=== PATIENT | female | born 1950 | race Caucasian/White ===

== ENCOUNTER → 2016-03-21 | Outpatient (CLI) | payer OTHER ==
[2016-03-21 12:59] LABS: Basophils % (A) 1 %; CHCM 34.4; Eosinophils # (A) 0.2 k/uL (0-0.7); Eosinophils % (A) 4 %; HCT 40.2 % (34.0-46.0); HDW 2.67; HGB 13.4 gm/dL (11.4-16.0); Luc # (Auto) 0.05; Luc % (Auto) 1; Lymphocytes # (A) 1.6 k/uL (1.0-4.8); Lymphocytes % (A) 28 %; MCH 30.3 pg (25.0-35.0); MCHC 33.4 g/dL (31.0-37.0); MCV 90.8 fL (80.0-100.0); Mean Platelet Volume 8.2; Monocytes # (A) 0.3 k/uL (0-1.0); Monocytes % (A) 5 %; Neutrophils # (A) 3.4 k/uL (1.3-7.7); Neutrophils % (A) 62 %; RBC 4.43 m/uL (3.80-5.40); RDW 12.5 % (11.5-15.5); WBC 5.5 k/uL (3.8-10.6)
[2016-03-21 13:16] LABS: ALT 34 U/L (9-52); AST 24 U/L (14-36); Alkaline Phosphatase 121 U/L (38-126); Anion Gap 10 mmol/L; Blood Urea Nitrogen 19 mg/dL (7-17); C Reactive Protein 7.5 mg/L (<10.0); Calcium 9.8 mg/dL (8.4-10.2); Carbon Dioxide 27 mmol/L (22-30); Chloride 108 mmol/L (98-107); Cholesterol 306 mg/dL (<200); Creatine Kinase 87 U/L (30-135); Glucose 92 mg/dL (74-99); HDL Cholesterol 46 mg/dL (40-60); Non-African American GFR(MDRD) >60 (>60 ml/min/1.73 sqM); Potassium 4.3 mmol/L (3.5-5.1); Sodium 145 mmol/L (137-145); Total Bilirubin 1.2 mg/dL (0.2-1.3); Total Protein 7.5 g/dL (6.3-8.2); Triglycerides 225 mg/dL (<150)
[2016-03-21 14:00] LABS: Vitamin B12 540 pg/mL (239-931)
[2016-03-21 14:01] LABS: Erythrocyte Sedimentation Rate 10 mm/hr (0-20)
[2016-03-21 14:55] LABS: Hemoglobin A1C 4.9 % (4.2-6.1)
[2016-03-21 22:48] LABS: ANA w/Reflex to Titer POSITIVE (NEGATIVE)
== END | disposition home or self-care (01) ==
LOC: LABWHC1 12:26
PROVIDERS: ATTEND Internal Medicine
DX: D64.9 Anemia, unspecified (principal); E78.5 Hyperlipidemia, unspecified; E55.9 Vitamin D deficiency, unspecified; E53.8 Deficiency of other specified B group vitamins; R25.9 Unspecified abnormal involuntary movements
CPT/HCPCS: 36415; 80053; 80061; 82306; 82550; 82607; 83036; 85025; 85652; 86038; 86039; 86140; 86225

== ENCOUNTER → 2017-08-12 | Outpatient (CLI) | payer MEDICARE ==
[2017-08-12 14:51] LABS: Basophils % (A) 0 %; Eosinophils # (A) 0.2 k/uL (0-0.7); Eosinophils % (A) 3 %; HCT 40.6 % (34.0-46.0); HGB 13.6 gm/dL (11.4-16.0); Lymphocytes # (A) 1.6 k/uL (1.0-4.8); Lymphocytes % (A) 25 %; MCH 29.7 pg (25.0-35.0); MCHC 33.6 g/dL (31.0-37.0); MCV 88.3 fL (80.0-100.0); Mean Platelet Volume 7.9; Monocytes # (A) 0.4 k/uL (0-1.0); Monocytes % (A) 6 %; Neutrophils # (A) 4.2 k/uL (1.3-7.7); Neutrophils % (A) 65 %; Platelet Count 189 k/uL (150-450); RDW 13.2 % (11.5-15.5); WBC 6.5 k/uL (3.8-10.6)
[2017-08-12 15:33] LABS: ALT 31 U/L (9-52); AST 28 U/L (14-36); Alkaline Phosphatase 115 U/L (38-126); Anion Gap 17 mmol/L; Blood Urea Nitrogen 19 mg/dL (7-17); C Reactive Protein <5.0 mg/L (<10.0); Calcium 9.9 mg/dL (8.4-10.2); Carbon Dioxide 22 mmol/L (22-30); Chloride 106 mmol/L (98-107); Creatine Kinase 126 U/L (30-135); Glucose 89 mg/dL (74-99); HDL Cholesterol 47 mg/dL (40-60); Phosphorus 4.2 mg/dL (2.5-4.5); Potassium 4.3 mmol/L (3.5-5.1); Sodium 145 mmol/L (137-145); Total Bilirubin 1.2 mg/dL (0.2-1.3); Total Protein 7.7 g/dL (6.3-8.2); Triglycerides 325 mg/dL (<150); Uric Acid 7.6 mg/dL (3.7-7.4)
[2017-08-12 15:35] LABS: LDL Cholesterol,Calculated 219 mg/dL (0-99)
[2017-08-12 15:43] LABS: Cholesterol 331 mg/dL (<200)
[2017-08-12 15:47] LABS: T4, Free (Free Thyroxine) 0.94 ng/dL (0.78-2.19)
[2017-08-12 16:30] LABS: Erythrocyte Sedimentation Rate 11 mm/hr (0-20)
[2017-08-12 18:44] LABS: Iron Saturation 24.79 (12.00-45.00)
[2017-08-12 18:54] LABS: Vitamin D 25 Hydroxy 31.8 ng/mL (30.0-100.0)
[2017-08-12 22:28] LABS: Hemoglobin A1C 5.5 % (4.0-6.0)
== END | disposition home or self-care (01) ==
LOC: LABWHC1 13:11
PROVIDERS: ATTEND Internal Medicine
DX: D64.9 Anemia, unspecified (principal); E11.9 Type 2 diabetes mellitus without complications; E78.5 Hyperlipidemia, unspecified; I10 Essential (primary) hypertension; E55.9 Vitamin D deficiency, unspecified; G70.9 Myoneural disorder, unspecified; R25.9 Unspecified abnormal involuntary movements
CPT/HCPCS: 36415; 80053; 80061; 82306; 82550; 82728; 83036; 83540; 83550; 83735; 84100; 84439; 84443; 84550; 85025; 85652; 86140

== ENCOUNTER → 2017-10-08 | Outpatient (CLI) | payer MEDICARE ==
[2017-10-08 19:22] LABS: DNA Double-Stranded NEGATIVE (NEGATIVE)
[2017-10-09 11:46] LABS: ANA Pattern Speckled
== END | disposition home or self-care (01) ==
LOC: LABWHC1 12:55
PROVIDERS: ATTEND Internal Medicine
DX: G70.00 Myasthenia gravis without (acute) exacerbation (principal); G25.5 Other chorea
CPT/HCPCS: 36415; 83519; 86038; 86039; 86225

== ENCOUNTER → 2017-10-16 | Outpatient (CLI) | payer MEDICARE ==
[2017-10-16 12:30] LABS: C Reactive Protein 5.6 mg/L (<10.0)
[2017-10-16 12:43] LABS: T4, Free (Free Thyroxine) 0.9 ng/dL (0.78-2.19)
[2017-10-17 06:16] LABS: Angiotensin-1 Converting Enz. 12 U/L (8-52)
[2017-10-21 01:40] LABS: Acetylchol Recept Bind Ab <0.30 nmol/L
== END | disposition home or self-care (01) ==
LOC: LABWHC1 11:51
PROVIDERS: ATTEND Ophthalmology
DX: H02.433 Paralytic ptosis of bilateral eyelids (principal)
CPT/HCPCS: 36415; 82164; 83519; 84439; 84443; 86140; 86780

== ENCOUNTER → 2017-11-26 | Outpatient (CLI) | payer MEDICARE ==
[2017-11-26 14:26] LABS: Basophils % (A) 1 %; Eosinophils # (A) 0.3 k/uL (0-0.7); Eosinophils % (A) 5 %; HCT 42.5 % (34.0-46.0); HGB 14.2 gm/dL (11.4-16.0); Lymphocytes # (A) 1.4 k/uL (1.0-4.8); Lymphocytes % (A) 25 %; MCH 30.2 pg (25.0-35.0); MCHC 33.4 g/dL (31.0-37.0); MCV 90.4 fL (80.0-100.0); Mean Platelet Volume 7.7; Monocytes # (A) 0.3 k/uL (0-1.0); Monocytes % (A) 5 %; Neutrophils # (A) 3.5 k/uL (1.3-7.7); Neutrophils % (A) 64 %; Platelet Count 181 k/uL (150-450); RDW 12.9 % (11.5-15.5); WBC 5.5 k/uL (3.8-10.6)
[2017-11-26 14:53] LABS: ALT 31 U/L (9-52); AST 28 U/L (14-36); Albumin 4.9 g/dL (3.5-5.0); Alkaline Phosphatase 101 U/L (38-126); Anion Gap 9 mmol/L; Blood Urea Nitrogen 22 mg/dL (7-17); C Reactive Protein <5.0 mg/L (<10.0); Calcium 9.9 mg/dL (8.4-10.2); Carbon Dioxide 26 mmol/L (22-30); Chloride 108 mmol/L (98-107); Cholesterol 291 mg/dL (<200); Creatine Kinase 146 U/L (30-135); Glucose 96 mg/dL (74-99); HDL Cholesterol 47 mg/dL (40-60); LDL Cholesterol,Calculated 206 mg/dL (0-99); Magnesium 2.1 mg/dL (1.6-2.3); Phosphorus 4.5 mg/dL (2.5-4.5); Potassium 4.4 mmol/L (3.5-5.1); Sodium 143 mmol/L (137-145); Total Protein 7.7 g/dL (6.3-8.2); Triglycerides 190 mg/dL (<150)
[2017-11-26 16:00] LABS: Erythrocyte Sedimentation Rate 10 mm/hr (0-20)
[2017-11-26 19:54] LABS: Vitamin D 25 Hydroxy 21.8 ng/mL (30.0-100.0)
[2017-11-26 20:29] LABS: DNA Double-Stranded NEGATIVE (NEGATIVE)
[2017-11-27 12:44] LABS: ANA Pattern Homogeneous
[2017-11-27 14:06] LABS: C-ANCA <1:20 Titer (<1:20); P-ANCA <1:20 Titer (<1:20)
[2017-11-29 16:35] LABS: Acetylchol Recept Bind Ab <0.30 nmol/L
== END ==
LOC: LABWHC1 14:04
PROVIDERS: ATTEND Internal Medicine
DX: E78.5 Hyperlipidemia, unspecified (principal); E87.8 Other disorders of electrolyte and fluid balance, not elsewhere classified; G24.9 Dystonia, unspecified; M35.9 Systemic involvement of connective tissue, unspecified; G70.00 Myasthenia gravis without (acute) exacerbation
CPT/HCPCS: 36415; 80053; 80061; 82306; 82550; 83519; 83735; 84100; 84443; 85025; 85652; 86038; 86039; 86140; 86225; 86235; 86255

== ENCOUNTER → 2018-05-24 | Outpatient (CLI) | payer MEDICARE ==
--- NOTE | 2018-05-24 13:06 | MM ---
Reason for exam: screening (asymptomatic). Last mammogram was performed 2 years and 10 months ago. History: Patient is postmenopausal and has history of other cancer at age 34. Family history of breast cancer in maternal cousin, breast cancer in paternal aunt, and breast cancer in maternal aunt. Took estrogen for 7 years beginning at age 50. Physical Findings: A clinical breast exam by your physician is recommended on an annual basis and results should be correlated with mammographic findings. MG Screening Mammo w CAD Bilateral CC and MLO view(s) were taken. Prior study comparison: July 20, 2015, bilateral MG screening mammo w CAD. May 20, 2013, bilateral digital screening mammo w/CAD. The breast tissue is heterogeneously dense. This may lower the sensitivity of mammography. Focal asymmetry central upper left MLO, 8cm from nipple. This finding is changed when compared with previous exams. ASSESSMENT: Incomplete: need additional imaging evaluation, BI-RAD 0 RECOMMENDATION: Special view mammogram of the left breast. If lesion persists on supplemental views, image directed ultrasound is recommended. [facility] will attempt to contact patient to return for supplemental views and ultrasound if indicated.
== END | disposition home or self-care (01) ==
LOC: RADMAMWWP 08:03
PROVIDERS: ATTEND Internal Medicine
DX: Z12.31 Encounter for screening mammogram for malignant neoplasm of breast (principal)
CPT/HCPCS: 77067

== ENCOUNTER → 2018-05-27 | Outpatient (CLI) | payer MEDICARE ==
--- NOTE | 2018-05-27 08:47 | MM ---
Reason for exam: additional evaluation requested from abnormal screening. Last mammogram was performed less than 1 month ago. History: Patient is postmenopausal and has history of other cancer at age 34. Family history of breast cancer in maternal cousin, breast cancer in paternal aunt, and breast cancer in maternal aunt. Took estrogen for 7 years beginning at age 50. Physical Findings: Nurse did not find any significant physical abnormalities on exam. MG Work Up Mamm w CAD LT Spot compression CC, spot compression MLO, and LM view(s) were taken of the left breast. Prior study comparison: May 24, 2018, bilateral MG screening mammo w CAD. July 20, 2015, bilateral MG screening mammo w CAD. The breast tissue is heterogeneously dense. This may lower the sensitivity of mammography. Distinct lesion does not persist on additional images. These results were verbally communicated with the patient and result sheet given to the patient on 05/27/18. ASSESSMENT: Benign, BI-RAD 2 RECOMMENDATION: Return to routine screening mammogram schedule for both breasts.
== END ==
LOC: RADMAMWWP 07:10
PROVIDERS: ATTEND Internal Medicine
DX: R92.8 Other abnormal and inconclusive findings on diagnostic imaging of breast (principal)
CPT/HCPCS: 77065

== ENCOUNTER → 2018-08-05 | Outpatient (CLI) | payer MEDICARE ==
[2018-08-05 19:20] LABS: C Reactive Protein 2.6 mg/dL (0.0-0.8); LDL Cholesterol,Calculated 148.2 mg/dL (0.0-131.0); VLDL Calculation 40.8 mg/dL (5.00-40.00)
== END ==
LOC: LABWHC1 11:47
PROVIDERS: ATTEND Internal Medicine
DX: E78.5 Hyperlipidemia, unspecified (principal); E55.9 Vitamin D deficiency, unspecified
CPT/HCPCS: 36415; 80061; 82550; 85652; 86140

== ENCOUNTER → 2019-03-14 | Outpatient (CLI) | payer MEDICARE ==
[2019-03-14 14:36] LABS: Basophils % (A) 1 %; Eosinophils # (A) 0.2 k/uL (0-0.7); Eosinophils % (A) 3 %; HGB 14.1 gm/dL (11.4-16.0); Lymphocytes # (A) 1.5 k/uL (1.0-4.8); Lymphocytes % (A) 24 %; MCH 30.7 pg (25.0-35.0); MCHC 33.6 g/dL (31.0-37.0); MCV 91.4 fL (80.0-100.0); Mean Platelet Volume 8.2; Monocytes # (A) 0.3 k/uL (0-1.0); Monocytes % (A) 5 %; Neutrophils # (A) 4.1 k/uL (1.3-7.7); Neutrophils % (A) 66 %; Platelet Count 164 k/uL (150-450); RBC 4.59 m/uL (3.80-5.40); RDW 12.6 % (11.5-15.5); WBC 6.2 k/uL (3.8-10.6)
[2019-03-14 15:19] LABS: Erythrocyte Sedimentation Rate 9 mm/hr (0-20)
[2019-03-14 20:27] LABS: ALT 26 U/L (8-44); AST 26 U/L (13-35); African American GFR (CKD) 76.7 (60.0-200.0); Alkaline Phosphatase 134 U/L (41-126); C Reactive Protein <0.4 mg/dL (0.0-0.8); Carbon Dioxide 27.2 mmol/L (21.6-31.8); Chloride 106 mmol/L (96-109); Chol/HDL Ratio 5.73; Cholesterol 298 mg/dL (0-200); Creatine Kinase 80 U/L (26-186); Glucose 97 mg/dL (70-110); LDL Cholesterol,Calculated 192.8 mg/dL (0.0-131.0); Magnesium 1.9 mg/dL (1.5-2.4); Non-African American GFR(CKD) 66.2 (60.0-200.0); Phosphorus 4.3 mg/dL (2.4-5.1); Potassium 4.6 mmol/L (3.5-5.5); Sodium 143 mmol/L (135-145); Total Bilirubin 0.7 mg/dL (0.3-1.2)
== END | disposition home or self-care (01) ==
LOC: LABWHC1 13:40
PROVIDERS: ATTEND Internal Medicine
DX: I10 Essential (primary) hypertension (principal); D64.9 Anemia, unspecified; E78.5 Hyperlipidemia, unspecified
CPT/HCPCS: 36415; 80053; 80061; 82550; 83735; 84100; 84443; 85025; 85652; 86140

== ENCOUNTER → 2019-04-19 | Outpatient (CLI) | payer MEDICARE ==
--- NOTE | 2019-04-19 10:59 | XR ---
EXAMINATION TYPE: XR abdomen complete w decub DATE OF EXAM: 04/19/2019 CLINICAL HISTORY: Acute abdominal pain TECHNIQUE: Supine and upright views of the abdomen are obtained. COMPARISON: None. FINDINGS: Scattered gas is seen in non-distended stomach and small bowel loops. Gas and fecal mater ial is seen in non-distended colon. There are suspected small gallstones and gallbladder. Lung bases are clear. No pneumoperitoneum. Suspect small bilateral renal calculi. Osseous structures are intact. IMPRESSION: Overall nonobstructive bowel gas pattern. Probable gallstones and bilateral renal calcul i. Correlate clinically.
[2019-04-19 11:13] LABS: Basophils # (A) 0.1 k/uL (0-0.2); Basophils % (A) 1 %; Eosinophils # (A) 0.1 k/uL (0-0.7); Eosinophils % (A) 1 %; HGB 14.3 gm/dL (11.4-16.0); Lymphocytes # (A) 1.3 k/uL (1.0-4.8); Lymphocytes % (A) 11 %; MCH 29.8 pg (25.0-35.0); MCHC 32.6 g/dL (31.0-37.0); MCV 91.6 fL (80.0-100.0); Mean Platelet Volume 8.4; Monocytes # (A) 0.7 k/uL (0-1.0); Monocytes % (A) 6 %; Neutrophils # (A) 9.8 k/uL (1.3-7.7); Neutrophils % (A) 81 %; Platelet Count 188 k/uL (150-450); RDW 12.9 % (11.5-15.5); WBC 12.1 k/uL (3.8-10.6)
[2019-04-19 11:26] LABS: Amylase 44 U/L (30-110)
== END | disposition home or self-care (01) ==
LOC: RADXRMAIN 10:17
PROVIDERS: ATTEND Internal Medicine
DX: R10.30 Lower abdominal pain, unspecified (principal); K59.00 Constipation, unspecified
CPT/HCPCS: 36415; 74021; 82150; 83690; 85025

== ENCOUNTER 2019-05-22 18:24 | Observation (INO) | payer MEDICARE ==
[2019-05-22] MEDS ORDERED: ASPIRIN 81 MG PO STA (18:40)
[2019-05-22] MEDS ORDERED: NITROGLYCERIN OINT 1 INCH/GM PACKET TOPICAL STA (18:40)
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
[2019-05-22 19:12] LABS: Basophils % (A) 1 %; Eosinophils # (A) 0.1 k/uL (0-0.7); Eosinophils % (A) 1 %; HCT 40.5 % (34.0-46.0); HGB 13.6 gm/dL (11.4-16.0); Lymphocytes # (A) 0.7 k/uL (1.0-4.8); Lymphocytes % (A) 14 %; MCH 30.4 pg (25.0-35.0); MCHC 33.6 g/dL (31.0-37.0); MCV 90.6 fL (80.0-100.0); Mean Platelet Volume 8.4; Monocytes # (A) 0.4 k/uL (0-1.0); Monocytes % (A) 9 %; Neutrophils # (A) 3.6 k/uL (1.3-7.7); Neutrophils % (A) 74 %; Platelet Count 141 k/uL (150-450); RBC 4.47 m/uL (3.80-5.40); RDW 12.9 % (11.5-15.5); WBC 4.9 k/uL (3.8-10.6)
[2019-05-22 19:22] LABS: ALT 19 U/L (4-34); AST 31 U/L (14-36); African American GFR (CKD) >90 (>60 ml/min/1.73 sqM); Albumin 4.9 g/dL (3.5-5.0); Alkaline Phosphatase 130 U/L (38-126); Amylase 34 U/L (30-110); Anion Gap 11 mmol/L; Blood Urea Nitrogen 14 mg/dL (7-17); Calcium 9.6 mg/dL (8.4-10.2); Carbon Dioxide 23 mmol/L (22-30); Chloride 105 mmol/L (98-107); Glucose 105 mg/dL (74-99); Magnesium 2.1 mg/dL (1.6-2.3); Non-African American GFR(CKD) 88 (>60 ml/min/1.73 sqM); Potassium 4.1 mmol/L (3.5-5.1); Sodium 139 mmol/L (137-145); Total Bilirubin 0.7 mg/dL (0.2-1.3)
[2019-05-22 19:41] LABS: D-Dimer 0.41 mg/L FEU (<0.60); Partial Thromboplastin Time 25.7 sec (22.0-30.0); Prothrombin Time 10.2 sec (9.0-12.0)
--- NOTE | 2019-05-22 19:47 | XR ---
EXAMINATION TYPE: XR chest 2V DATE OF EXAM: 05/22/2019 COMPARISON: 07/04/2015 HISTORY: Chest pain TECHNIQUE: FINDINGS: Heart and mediastinum are normal. Lungs are clear. Diaphragm is normal. Bony thorax appears normal. There are chest leads. IMPRESSION: Normal chest. No change.
[2019-05-22] MEDS ORDERED: NITROGLYCERIN SL TABS 0.4 MG TAB SUBLINGUAL PRN (20:11)
[2019-05-22 20:27] VITALS: RESP 18
[2019-05-22] MEDS ORDERED: TRIAMCINOLONE 0.1% CREAM 80 GM TUBE TOPICAL PRN (21:15)
[2019-05-22] MEDS ORDERED: IBUPROFEN 200 MG TAB PO SCH (21:30)
[2019-05-22] MEDS ORDERED: LISINOPRIL 10 MG TAB PO SCH (21:30)
[2019-05-22] MEDS ORDERED: IBUPROFEN 400 MG TAB PO SCH (21:30)
[2019-05-22] MEDS: BACLOFEN 10 MG TAB PO SCH (21:55)
[2019-05-22] MEDS: GABAPENTIN 100 MG CAP PO SCH (21:55)
[2019-05-22] MEDS ORDERED: AMMONIUM LACTATE 12% LOTION 225 GM BTL TOPICAL SCH ×2 (22:00)
[2019-05-23] MEDS: NITROGLYCERIN OINT 1 INCH/GM PACKET TOPICAL SCH ×2 (00:13→05:03)
[2019-05-23 07:45] VITALS: BP 93/60; PULSE 48; TEMP 97.8
[2019-05-23 07:52] LABS: Cholesterol 229 mg/dL (<200); HDL Cholesterol 36 mg/dL (40-60); LDL Cholesterol,Calculated 157 mg/dL (0-99); Triglycerides 180 mg/dL (<150)
[2019-05-23] MEDS ORDERED: AMINOPHYLLINE 500 MG/20 ML VIAL IV PRN (08:20)
[2019-05-23] MEDS ORDERED: CAFFEINE CITRATE 60 MG/3 ML VIAL IV PRN (08:20)
[2019-05-23] MEDS ORDERED: DIPYRIDAMOLE IV ONE (09:00)
[2019-05-23] MEDS ORDERED: ASPIRIN 325 MG TAB PO SCH (09:00)
[2019-05-23] MEDS ORDERED: SODIUM CHLORIDE 0.9% IV ONE (09:00)
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
[2019-05-23] MEDS ORDERED: AMINOPHYLLINE 500 MG/20 ML VIAL IV ONE (11:50)
[2019-05-23] MEDS: GABAPENTIN 100 MG CAP PO SCH (12:41)
[2019-05-23] MEDS: BACLOFEN 10 MG TAB PO SCH (12:41)
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
--- NOTE | 2019-05-23 13:30 | NM ---
EXAMINATION TYPE: NM stress persantine cardiolite DATE OF EXAM: 05/23/2019 COMPARISON: NONE HISTORY: 68-year-old female with chest pain, hypertension, CVA, high cholesterol. TECHNIQUE: After the intravenous administration of 10.2 mCi Tc 99m Sestamibi - Cardiolite resting SP ECT images acquired 50 minutes post injection. The patient received 38.3 mg Persantine, 25.5 mCi Tc 99m Sestamibi - Stress images obtained 40 minute s post injection FINDINGS: Review of stress and rest SPECT images demonstrates no distinct perfusion abnormality. Gated analysi s shows normal wall motion with an estimated left ventricular ejection fraction of 77 %. TID is uppe r limits at 1.17 (normal < 1.2). IMPRESSION: TID is at the upper limits of normal at 1.17 (normal <1.2). An abnormally elevated TID can be an ind icator of multivessel, balanced inducible ischemia. No focal reversible ischemic defect is identifie d. If high clinical suspicious, further evaluation may be indicated.
--- NOTE | 2019-05-23 14:55 | DS ---
DISCHARGE SUMMARY ADMISSION DATE: 05/23/2019 DISCHARGE DATE: 05/23/2019 She was on observation status and discharged today, the date of discharge. Her room #152 bed 1. NEW DATA: She is 5 foot 2 inches and weight 67.13 kg, , BSA 1.68 m2, BMI 27.1 kg/m2. she has multiple allergies and with including LIVALO, that is a cholesterol medication. and she is also allergic to NIASPAN ER and CELEBREX and CEPHALOSPORIN, CLARITIN, HMG-CO ENZYME REDUCTASE, and she is allergic to NICKEL and PENICILLIN, TETRACYCLINE, VITAMIN A, FENOFIBRATE and NIACIN as well as he is allergic to ARICEPT, CIPRO, ZETIA; however, she has been taken Zetia with no reaction and Mobic and Zocor and sulfa. DIAGNOSIS ON THE DISCHARGE: 1. Atypical chest pain. 2. Stress cardiac test done by Cardiology, which was noted as negative. She had an echocardiogram. We do not have the reading or the result on it yet. 3. She had hyperlipidemia. 4. She has involuntary movement abnormalities. 5. History of hypertension with hypertensive heart disease. She refused any statin. 6. She has underlying arthritis, generalized. Patient admitted on observation with a chest pain, precordial, radiated to the neck, intermittent, sharp in origin and subsequently seen by the Cardiology team and scheduled for the stress test and echocardiogram. As patient underwent the testing and the stress test was negative, I was called. I did see the patient today and I had advised her that she will be discharged and currently she is discharged by the Cardiology and we will be discharge and see her in 3-4 days. MMGAUDENCIOL / CATHI: [id number] /
[2019-05-23] MEDS ORDERED: diphenhydrAMINE 25 MG CAP PO SCH (21:00)
--- NOTE | 2019-05-24 10:47 | ECHOF ---
Referral Reason:cp MEASUREMENTS -------- HEIGHT: 157.5 cm WEIGHT: 67.1 kg BP: 93/60 RVIDd: 2.4 cm (< 3.3) IVSd: 1.0 cm (0.6 - 1.1) LVIDd: 3.7 cm (3.9 - 5.3) LVPWd: 1.2 cm (0.6 - 1.1) IVSs: 1.6 cm LVIDs: 2.4 cm LVPWs: 1.4 cm LAESV Index (A-L): 12.30 ml/m Ao Diam: 2.6 cm (2.0 - 3.7) AV Cusp: 1.9 cm (1.5 - 2.6) MV EXCURSION: 12.495 mm (> 18.000) MV EF SLOPE: 65 mm/s (70 - 150) EPSS: 0.5 cm MV E Jorge: 0.56 m/s MV DecT: 218 ms MV A Jorge: 0.73 m/s MV E/A Ratio: 0.77 RAP: 5.00 mmHg RVSP: 30.67 mmHg FINDINGS -------- Sinus rhythm. This was a technically adequate study. The left ventricular size is normal. There is mild concentric left ventricular hypertrophy. Overa ll left ventricular systolic function is normal with, an EF between 55 - 60 %. The diastolic fillin g pattern is normal for the age of the patient 9.12. The right ventricle is normal in size. Normal LA size by volume 22+/-6 ml/m2. The right atrium was not well visualized. Interatrial and interventricular septum intact. The aortic valve was not well visualized. There is no evidence of aortic regurgitation. There is no evidence of aortic stenosis. No mitral regurgitation. Mild tricuspid regurgitation present. There is no evidence of pulmonary hypertension. The right v entricular systolic pressure, as measured by Doppler, is 30.67mmHg. There is no pulmonic regurgitation present. The aortic root size is normal. Normal inferior vena cava with normal inspiratory collapse consistent with estimated right atrial pre ssure of 5 mmHg. There is no pericardial effusion. CONCLUSIONS -------- 1. Sinus rhythm. 2. This was a technically adequate study. 3. The left ventricular size is normal. 4. There is mild concentric left ventricular hypertrophy. 5. Overall left ventricular systolic function is normal with, an EF between 55 - 60 %. 6. The diastolic filling pattern is normal for the age of the patient 9.12 7. The right ventricle is normal in size. 8. Normal LA size by volume 22+/-6 ml/m2. 9. The right atrium was not well visualized. 10. Interatrial and interventricular septum intact. 11. The aortic valve was not well visualized. 12. There is no evidence of aortic regurgitation. 13. There is no evidence of aortic stenosis. 14. No mitral regurgitation. 15. Mild tricuspid regurgitation present. 16. There is no evidence of pulmonary hypertension. 17. The right ventricular systolic pressure, as measured by Doppler, is 30.67mmHg. 18. There is no pulmonic regurgitation present. 19. The aortic root size is normal. 20. Normal inferior vena cava with normal inspiratory collapse consistent with estimated right atrial pressure of 5 mmHg. 21. There is no pericardial effusion. OFFICE SERVICES REPRESENTATIVE: Senait Qureshi RDCS
--- NOTE | 2019-05-24 11:17 | EST ---
EXERCISE STRESS AGE: 68 SEX: F HT: 5'2" WT: 148 PROTOCOL: Persantine Cardiolite Stress Test HEART RATE REST: 59 BLOOD PRESSURE REST: 116/72 MAXIMUM HEART RATE ACHIEVED: 72 MAXIMUM BLOOD PRESSURE: 116/72 85% MPHR: 130 100% MPHR: 153 INDICATIONS: Chest pain. CLINICAL INFORMATION: Baseline EKG shows sinus rhythm, normal axis, normal intervals. Patient was given intravenous Lexiscan as per protocol. Did not have chest pain or diagnostic ST-segment depression. CONCLUSION: 1. Negative stress test by EKG criteria. 2. Cardiolite portion of the stress test will be reported separately. MMODL / IJN: [id number] /
== END 2019-05-23 14:45 ==
LOC: EC 18:24 → 1SOBS 20:11
PROVIDERS: ADMIT Internal Medicine; ATTEND Internal Medicine
DX: R07.89 Other chest pain (principal); I11.9 Hypertensive heart disease without heart failure; I25.10 Atherosclerotic heart disease of native coronary artery without angina pectoris; Z86.73 Personal history of transient ischemic attack (TIA), and cerebral infarction without residual deficits; K21.9 Gastro-esophageal reflux disease without esophagitis; M15.0 Primary generalized (osteo)arthritis; G47.33 Obstructive sleep apnea (adult) (pediatric); E03.9 Hypothyroidism, unspecified; F40.240 Claustrophobia; K58.9 Irritable bowel syndrome, unspecified; G89.29 Other chronic pain; M54.5 Low back pain; Z85.41 Personal history of malignant neoplasm of cervix uteri; Z86.010 Personal history of colon polyps; Z87.19 Personal history of other diseases of the digestive system; F41.9 Anxiety disorder, unspecified; R25.9 Unspecified abnormal involuntary movements; E78.5 Hyperlipidemia, unspecified; I07.1 Rheumatic tricuspid insufficiency; Z90.710 Acquired absence of both cervix and uterus; Z90.89 Acquired absence of other organs; Z88.6 Allergy status to analgesic agent; Z88.1 Allergy status to other antibiotic agents; Z88.0 Allergy status to penicillin; Z88.8 Allergy status to other drugs, medicaments and biological substances; Z79.1 Long term (current) use of non-steroidal anti-inflammatories (NSAID); Z79.890 Hormone replacement therapy; Z79.899 Other long term (current) drug therapy
CPT/HCPCS: 93005 ×2; 99285; 36415; 93017; 93306; 85379; 80061; 80053; 82150; 83690; 83735; 84484 ×2; 85025; 85610; 85730; 71046; 78452; G0378 ×2; A9500; J0280; J1245

== ENCOUNTER → 2019-09-30 | Outpatient (CLI) | payer MEDICARE ==
--- NOTE | 2019-09-30 08:28 | US ---
EXAMINATION TYPE: US abdomen complete DATE OF EXAM: 09/30/2019 COMPARISON: NONE CLINICAL HISTORY: R10.31 RLQ ABD PAIN. Abnormal labs EXAM MEASUREMENTS: Liver Length: 18.6 cm Gallbladder Wall: 0.2 cm CBD: 0.4 cm Spleen: 13.1 cm Right Kidney: 9.3 x 4.5 x 4.5 cm Left Kidney: 10.5 x 4.0 x 4.7 cm Pancreas: wnl Liver: Appears coarse and enlarged in size Gallbladder: Multiple mobile echogenic foci Evidence for sonographic Gooden's sign: neg CBD: wnl Spleen: Upper limits of normal Right Kidney: No hydronephrosis or masses seen Left Kidney: Lower pole cystic appearing lesion with septation vs two adjacent dilated ducts = 2.0 x 1.5 x 1.7 cm Upper IVC: wnl Abd Aorta: No AAA visualized IMPRESSION: 1. Complex cyst lower pole left kidney. Monitoring with ultrasound is recommended. 2. Cholelithiasis. 3. Hepatomegaly with fatty infiltration.
[2019-09-30 08:34] LABS: Basophils % (A) 1 %; Eosinophils # (A) 0.2 k/uL (0-0.7); Eosinophils % (A) 4 %; HCT 42.4 % (34.0-46.0); HGB 13.5 gm/dL (11.4-16.0); Lymphocytes # (A) 1.8 k/uL (1.0-4.8); Lymphocytes % (A) 32 %; MCH 29.4 pg (25.0-35.0); MCHC 31.9 g/dL (31.0-37.0); MCV 92.3 fL (80.0-100.0); Mean Platelet Volume 8.2; Monocytes # (A) 0.4 k/uL (0-1.0); Monocytes % (A) 6 %; Neutrophils # (A) 3.2 k/uL (1.3-7.7); Neutrophils % (A) 56 %; Platelet Count 170 k/uL (150-450); RBC 4.59 m/uL (3.80-5.40); RDW 13.2 % (11.5-15.5); WBC 5.8 k/uL (3.8-10.6)
[2019-09-30 08:45] LABS: ALT 17 U/L (4-34); AST 24 U/L (14-36); African American GFR (CKD) >90 (>60 ml/min/1.73 sqM); Albumin 4.8 g/dL (3.5-5.0); Alkaline Phosphatase 90 U/L (38-126); Anion Gap 8 mmol/L; Blood Urea Nitrogen 18 mg/dL (7-17); Calcium 9.3 mg/dL (8.4-10.2); Carbon Dioxide 26 mmol/L (22-30); Chloride 109 mmol/L (98-107); Glucose 114 mg/dL (74-99); Non-African American GFR(CKD) 89 (>60 ml/min/1.73 sqM); Potassium 4.7 mmol/L (3.5-5.1); Sodium 143 mmol/L (137-145); Total Bilirubin 0.8 mg/dL (0.2-1.3); Total Protein 7.4 g/dL (6.3-8.2)
== END | disposition home or self-care (01) ==
LOC: RADUSWWP 07:39
PROVIDERS: ATTEND Internal Medicine
DX: N28.1 Cyst of kidney, acquired (principal); K80.20 Calculus of gallbladder without cholecystitis without obstruction; R16.0 Hepatomegaly, not elsewhere classified; K76.0 Fatty (change of) liver, not elsewhere classified; N20.0 Calculus of kidney; E21.3 Hyperparathyroidism, unspecified
CPT/HCPCS: 76700; 80053; 83970; 85025

== ENCOUNTER → 2019-10-17 | Outpatient (CLI) | payer MEDICARE ==
--- NOTE | 2019-10-18 08:59 | MM ---
Reason for exam: screening (asymptomatic). Last mammogram was performed 1 year and 5 months ago. History: Patient is postmenopausal and has history of other cancer at age 34. Family history of breast cancer in sister at age 73, breast cancer in paternal aunt, and breast cancer in cousin. Took hormonal contraceptives for 5 years 6 months beginning at age 19. Took estrogen for 7 years beginning at age 50. Physical Findings: A clinical breast exam by your physician is recommended on an annual basis and results should be correlated with mammographic findings. MG 3D Screening Mammo W/Cad Bilateral CC and MLO view(s) were taken. Prior study comparison: May 27, 2018, left breast MG work up mamm w CAD LT. May 24, 2018, bilateral MG screening mammo w CAD. The breast tissue is heterogeneously dense. This may lower the sensitivity of mammography. There is no discrete abnormality. No significant changes when compared with prior studies. ASSESSMENT: Negative, BI-RAD 1 RECOMMENDATION: Routine screening mammogram of both breasts in 1 year.
== END | disposition home or self-care (01) ==
LOC: RADMAMWWP 10:04
PROVIDERS: ATTEND Internal Medicine
DX: Z12.31 Encounter for screening mammogram for malignant neoplasm of breast (principal)
CPT/HCPCS: 77063; 77067

== ENCOUNTER → 2019-10-18 | Outpatient (CLI) | payer MEDICARE ==
[2019-10-18 19:49] LABS: Hemoglobin A1C 5.9 % (4.0-6.0)
== END | disposition home or self-care (01) ==
LOC: LABWHC1 12:28
PROVIDERS: ATTEND Internal Medicine
DX: E11.65 Type 2 diabetes mellitus with hyperglycemia (principal)
CPT/HCPCS: 36415; 83036

== ENCOUNTER → 2020-08-07 | Outpatient (CLI) | payer MEDICARE ==
[2020-08-07 22:58] LABS: Basophils # (A) 0.04 X 10*3/uL (0.00-0.10); Basophils % (A) 0.7 %; Eosinophils # (A) 0.17 X 10*3/uL (0.04-0.35); HCT 41.2 % (37.2-46.3); HGB 13.4 g/dL (12.0-15.0); Lymphocytes # (A) 1.57 X 10*3/uL (0.90-5.00); MCH 30.7 pg (27.0-32.0); MCHC 32.5 g/dL (32.0-37.0); MCV 94.5 fL (80.0-97.0); Mean Platelet Volume 12.6 fL (9.5-12.2); Monocytes # (A) 0.44 X 10*3/uL (0.20-1.00); Monocytes % (A) 7.9 %; Neutrophils # (A) 3.37 X 10*3/uL (1.80-7.70); Neutrophils % (A) 60.2 %; Platelet Count 173 X 10*3/uL (140-440); RBC 4.36 X 10*6/uL (4.10-5.20); RDW 12.3 % (11.5-14.5)
[2020-08-08 01:14] LABS: Erythrocyte Sedimentation Rate 15 mm/Hr (0-30)
[2020-08-08 13:58] LABS: African American GFR (CKD) 76.1 (60.0-200.0); Albumin/Globulin Ratio 2.17 (1.60-3.17); Anion Gap 14.2 mmol/L (4.00-12.00); BUN/Creat Ratio 14.44 Ratio (12.00-20.00); C Reactive Protein 0.4 mg/dL (0.0-0.8); Carbon Dioxide 21.8 mmol/L (21.6-31.8); Chol/HDL Ratio 7.12; Globulin 2.3 g/dL (1.6-3.3); LDL Cholesterol,Calculated 204.8 mg/dL (0.0-131.0); Magnesium 2.3 mg/dL (1.5-2.4); Non-African American GFR(CKD) 65.7 (60.0-200.0); Potassium 4.6 mmol/L (3.5-5.5); Total Bilirubin 0.7 mg/dL (0.3-1.2); Total Protein 7.3 g/dL (6.2-8.2); VLDL Calculation 52.2 mg/dL (5.00-40.00)
== END | disposition home or self-care (01) ==
LOC: LABWHC1 14:39
PROVIDERS: ATTEND Internal Medicine
DX: Z00.00 Encounter for general adult medical examination without abnormal findings (principal); D64.9 Anemia, unspecified; M10.9 Gout, unspecified; E03.9 Hypothyroidism, unspecified; E78.5 Hyperlipidemia, unspecified; N20.0 Calculus of kidney; E55.9 Vitamin D deficiency, unspecified; M19.90 Unspecified osteoarthritis, unspecified site
CPT/HCPCS: 36415; 80053; 80061; 82306; 82550; 83735; 84100; 84443; 84550; 85025; 85652; 86140

== ENCOUNTER → 2020-10-03 | Outpatient (CLI) | payer MEDICARE ==
[2020-10-03 22:49] LABS: Basophils # (A) 0.05 X 10*3/uL (0.00-0.10); Basophils % (A) 0.6 %; Eosinophils # (A) 0.15 X 10*3/uL (0.04-0.35); Eosinophils % (A) 1.8 %; HCT 45.3 % (37.2-46.3); HGB 14.4 g/dL (12.0-15.0); Lymphocytes # (A) 1.67 X 10*3/uL (0.90-5.00); Lymphocytes % (A) 19.9 %; MCHC 31.8 g/dL (32.0-37.0); MCV 97.6 fL (80.0-97.0); Mean Platelet Volume 11.9 fL (9.5-12.2); Monocytes % (A) 7.1 %; Neutrophils # (A) 5.92 X 10*3/uL (1.80-7.70); Neutrophils % (A) 70.4 %; Platelet Count 194 X 10*3/uL (140-440); RBC 4.64 X 10*6/uL (4.10-5.20); RDW 12.8 % (11.5-14.5); WBC 8.41 X 10*3/uL (4.50-10.00)
[2020-10-04 00:44] LABS: Erythrocyte Sedimentation Rate 29 mm/Hr (0-30)
[2020-10-04 04:58] LABS: African American GFR (CKD) 66.6 (60.0-200.0); Anion Gap 19.5 mmol/L (4.00-12.00); C Reactive Protein 11.8 mg/dL (0.0-0.8); Carbon Dioxide 24.5 mmol/L (21.6-31.8); Non-African American GFR(CKD) 57.4 (60.0-200.0); Potassium 4.3 mmol/L (3.5-5.5)
== END | disposition home or self-care (01) ==
LOC: LABWHC1 10:26
PROVIDERS: ATTEND Internal Medicine
DX: N20.0 Calculus of kidney (principal); N39.0 Urinary tract infection, site not specified; N13.9 Obstructive and reflux uropathy, unspecified
CPT/HCPCS: 36415; 80048; 85025; 85652; 86140